=== PATIENT | male | born 1960 | race Two or more races ===

== ENCOUNTER 2025-05-15 23:12 | Inpatient (IN) | payer OTHER ==
[~2025-05-15] VITALS: Ht 190.5 cm; Wt 100.7 kg
[~2025-05-15 23:12] MED LIST: NO TOMA.
[2025-05-16] MEDS ORDERED: LOSARTAN POTASS25 MG PO (00:07)
--- NOTE | 2025-05-16 00:12 | NUR ---
SE RECIBE PTE EN AREA DE TRIAGE ALERTA Y ORIENTADO X3 REFIERE TENER DOLOR ABDOMINAL JUSTIN. SE MIDEN S/V Y SE UBICA EN CAMA 9 CON BARANDAS ELEVADAS EN ESPERA DE EVALUCION MEDICA.
[2025-05-16] MEDS ORDERED: 0.9 % SODIUM CHLORIDE 1,000 ML IV STA (00:49)
[2025-05-16] MEDS ORDERED: KETOROLAC TROMETHAMINE 30 MG VIAL IV STA (00:50)
[2025-05-16] MEDS ORDERED: MORPHINE SULFATE 4 MG/ML VIAL IV STA (00:50)
[2025-05-16] MEDS ORDERED: KETOROLAC TROMETHAMINE 30 MG VIAL ONE (01:01)
--- NOTE | 2025-05-16 01:51 | NUR ---
PACIENTE ALERTA Y ORIENTADO X3. SE EDUCA A PACIENTE SOBRE PROCESO DE DONNIE DE MUESTRAS, CANALIZACION Y ADMINISTRACION DE MEDICAMENTOS, REFIERE ENTENDER. SE EJECUTAN ORDENES BAJO MEDIDAS ASEPTICAS.
[2025-05-16 02:20] LABS: BASO % 0.5 % (0.1-1.2); EOS # 0.09 (0.04-0.54); EOS % 1.0 % (0.7-7.0); LYMPH # 1.79 (1.18-3.74); LYMPH % 20.6 % (19.3-53.1); MEAN PLATELET VOLUME 11.80 fl (9.4-12.4); MONO # 0.52 (0.24-0.82); MONO % 6.0 % (4.7-12.5); NEUT # 6.21 (1.56-6.13); NEUT % 71.6 % (34.0-71.1); RED CELL DISTRIBUTION WIDTH 12.9 % (11.6-14.4)
[2025-05-16 03:10] LABS: INR 1.12
[2025-05-16 03:35] LABS: ERYTHROCYTE SEDIMENTATION RATE 2 mm/hr (0-20)
[2025-05-16 03:42] LABS: ALT/SGPT 143.0 U/L (12-78); AST/SGOT 179.0 U/L (15-37); BILIRUBIN TOTAL 1.58 mg/dL (0.3-1.2); BILIRUBIN,CONJUGATED 0.92 mg/dL (0.0-0.2); BUN CREA RATIO 14.0 (7.0-25.0); CREATININE SERUM 1.09 mg/dL (0.70-1.30); GFR 67.89; GLOBULINA 2.9 G/DL (2.4-3.5); GLUCOSE FASTING 103.0 mg/dL (65-100); OSMOLALITY SERUM 280.0 MOSM/KG (275-295)
--- NOTE | 2025-05-16 04:58 | NUR ---
SE NOTIFICA SONOGRAMA PENDIENTE.
[2025-05-16] MEDS ORDERED: METHYLPREDNISOLONE SOD SUCC 40 MG VIAL IV STA (08:39)
[2025-05-16] MEDS ORDERED: DIPHENHYDRAMINE HCL 50 MG/ML VIAL 1ML IV STA (08:40)
[2025-05-16 11:03] LABS: URINE APPEARANCE Clear; URINE BILIRRUBIN Small (NEGATIVE); URINE BLOOD Negative; URINE COLOR Dark Yellow; URINE GLUCOSE Negative (NEGATIVE); URINE KETONE Trace (NEGATIVE); URINE LEUKOCYTE Trace; URINE NITRATE Negative; URINE PROTEIN Negative (NEGATIVE); URINE UROBILINOGEN 1.0 E.U./dl
[2025-05-16 11:20] LABS: URINE EPITHELIAL CELLS 0-4 /HPF; URINE RBC 0-3 /HPF; URINE WBC 0-2 /hpf
[2025-05-16 11:21] LABS: URINE BACTERIA FEW
[2025-05-16] MEDS ORDERED: PIPERACILLIN/TAZOBACTAM SODIUM 3.375 GM VIAL IV STA (12:18)
[2025-05-16] MEDS ORDERED: 0.9 % SODIUM CHLORIDE 1,000 ML IV SCH (18:15)
[2025-05-16] MEDS ORDERED: ONDANSETRON HCL 4 MG in 0.9 % SODIUM CHLORIDE 50 ML IV PRN (18:15)
[2025-05-16] MEDS ORDERED: ACETAMINOPHEN 500 MG GEL..CAP PO PRN (18:15)
[2025-05-16] MEDS ORDERED: MORPHINE SULFATE 4 MG/ML CARTRIDGE IV PRN (18:45)
[2025-05-16] MEDS ORDERED: KETOROLAC TROMETHAMINE 15 MG VIAL IU ONE (18:45)
[2025-05-16 20:18] VITALS: BP 114/68; O2SAT 93
[2025-05-17] MEDS ORDERED: PIPERACILLIN/TAZOBACTAM SODIUM 3.375 GM in DEXTROSE 5 % IN WATER 100 ML IV SCH
[2025-05-17 01:33] VITALS: BP 128/72; O2SAT 93
[2025-05-17 07:00] LABS: ALT/SGPT 765.0 U/L (12-78); AST/SGOT 419.0 U/L (15-37); BILIRUBIN TOTAL 4.31 mg/dL (0.3-1.2); BILIRUBIN,CONJUGATED 3.05 mg/dL (0.0-0.2); TSH 1.11 uIU/mL (0.358-3.74)
[2025-05-17] MEDS ORDERED: LOSARTAN POTASSIUM 25 MG TABLET PO SCH (09:00)
[2025-05-17] MEDS ORDERED: TAMSULOSIN HCL 0.4 MG CAP PO SCH (09:00)
[2025-05-17] MEDS ORDERED: ENOXAPARIN SODIUM 40 MG/0.4 ML SYRINGE SUBCUTANEO SCH (09:00)
[2025-05-17] MEDS ORDERED: FAMOTIDINE/PF 20 MG in 0.9 % SODIUM CHLORIDE 8 ML IV PUSH SCH (09:00)
[2025-05-17 09:13] VITALS: BP 114/67; O2SAT 97
[2025-05-17 15:56] LABS: ALT/SGPT 719.0 U/L (12-78); AST/SGOT 307.0 U/L (15-37); BILIRUBIN TOTAL 3.3 mg/dL (0.3-1.2); BUN CREA RATIO 14.0 (7.0-25.0); CREATININE SERUM 0.93 mg/dL (0.70-1.30); GFR 81.54; GLOBULINA 2.7 G/DL (2.4-3.5); GLUCOSE FASTING 92.0 mg/dL (65-100); OSMOLALITY SERUM 281.0 MOSM/KG (275-295)
[2025-05-17 17:51] VITALS: BP 153/85; O2SAT 97
[2025-05-18 01:25] VITALS: BP 130/74; O2SAT 98
[2025-05-18 05:04] LABS: BASO % 1.2 % (0.1-1.2); EOS # 0.28 (0.04-0.54); EOS % 5.4 % (0.7-7.0); LYMPH # 1.12 (1.18-3.74); LYMPH % 21.6 % (19.3-53.1); MEAN PLATELET VOLUME 11.80 fl (9.4-12.4); MONO # 0.52 (0.24-0.82); MONO % 10.0 % (4.7-12.5); NEUT # 3.18 (1.56-6.13); NEUT % 61.4 % (34.0-71.1); RED CELL DISTRIBUTION WIDTH 13.2 % (11.6-14.4)
[2025-05-18 05:53] LABS: ALT/SGPT 529.0 U/L (12-78); AST/SGOT 165.0 U/L (15-37); BILIRUBIN TOTAL 2.25 mg/dL (0.3-1.2); BILIRUBIN,CONJUGATED 1.36 mg/dL (0.0-0.2); BUN CREA RATIO 10.0 (7.0-25.0); CKMB 1.2 NG/ML (0.5-3.6); CREATININE SERUM 1.09 mg/dL (0.70-1.30); GFR 67.89; GLOBULINA 2.6 G/DL (2.4-3.5); GLUCOSE FASTING 90.0 mg/dL (65-100); OSMOLALITY SERUM 282.0 MOSM/KG (275-295); PHOSPHOKINASE CREATININE 89.0 U/L (39-308)
[2025-05-18 09:38] VITALS: BP 146/88; O2SAT 99
[2025-05-19] MEDS ORDERED: CIALIS5 MG (02:05)
[2025-05-19] MEDS ORDERED: ROSUVASTATIN CA10 MG (02:20)
[2025-05-19] MEDS ORDERED: TAMS0.4C (02:20)
[2025-05-19] MEDS ORDERED: ZETIA10 MG (02:20)
[2025-05-19] MEDS ORDERED: CEPHALEXIN500 MG PO (04:26)
== END 2025-05-18 10:17 | disposition home or self-care (01) | DRG 446 ==
LOC: ER 23:12 → MEDI 05-16 18:36
PROVIDERS: General Practice; Internal Medicine Infectious Disease; Student in an Organized Health Care Education/Training Program; ADMIT Internal Medicine; ATTEND Internal Medicine
PROC: BW21YZZ Computerized Tomography (CT Scan) of Abdomen and Pelvis using Other Contrast (ICD-10-PCS; principal; 2025-05-16)
PROC: BW40ZZZ Ultrasonography of Abdomen (ICD-10-PCS; 2025-05-16)
PROC: BF37YZZ Magnetic Resonance Imaging (MRI) of Pancreas using Other Contrast (ICD-10-PCS; 2025-05-16)
DX: K80.00 Calculus of gallbladder with acute cholecystitis without obstruction (principal)

== ENCOUNTER 2025-05-19 01:50 | Emergency (ER) | payer OTHER ==
[~2025-05-19] VITALS: Ht 190.5 cm; Wt 102.1 kg
[~2025-05-19 01:50] MED LIST changes: +LOSARTAN POTASS25 MG PO
[2025-05-19 02:05] VITALS: BP 140/82; O2SAT 97
[2025-05-19] MEDS ORDERED: CIALIS5 MG (02:05)
[2025-05-19] MEDS ORDERED: ZETIA10 MG (02:20)
[2025-05-19] MEDS ORDERED: ROSUVASTATIN CA10 MG (02:20)
[2025-05-19] MEDS ORDERED: TAMS0.4C (02:20)
[2025-05-19] MEDS ORDERED: CEPHALEXIN500 MG PO (04:26)
== END 2025-05-19 04:30 ==
LOC: ER 01:50
DX: S01.81XA Laceration without foreign body of other part of head, initial encounter (principal); W06.XXXA Fall from bed, initial encounter; Y93.89 Activity, other specified; Y92.89 Other specified places as the place of occurrence of the external cause; Y99.8 Other external cause status; I10 Essential (primary) hypertension; Z88.5 Allergy status to narcotic agent